=== PATIENT | female | born 1960 | race Hispanic/Latino ===

== ENCOUNTER 2016-06-07 20:19 | Emergency (ER) | payer MEDICAID ==
[2016-06-07 20:20] VITALS: BMI 27.8
[2016-06-07 20:31] VITALS: RESP 16; TEMP 98.2
[2016-06-07 22:00] VITALS: BP 136/69; PULSE 63; O2SAT 97
[2016-06-07 22:10] LABS: BASO # 0.1 K/uL (0.0-0.2); BASO % 0.9 % (0.0-2.0); EOS # 0.2 K/uL (0.0-0.7); EOS % 2.3 % (0.0-4.0); HEMATOCRIT 34.3 % (34.0-47.0); LYMPH # 3.5 K/uL (1.0-4.3); LYMPH % 35.4 % (20.0-40.0); MEAN CELL VOLUME 88.2 fl (81.0-99.0); MEAN CORPUSCULAR HEMOGLOBIN 29.3 pg (27.0-31.0); MEAN CORPUSCULAR HGB CONC 33.2 g/dL (33.0-37.0); MEAN PLATELET VOLUME 9.4 fl (7.2-11.7); MONO # 0.8 K/uL (0.0-0.8); MONO % 8.2 % (0.0-10.0); NEUT # 5.3 K/uL (1.8-7.0); NEUT % 53.2 % (50.0-75.0); RED CELL DISTRIBUTION WIDTH 13.6 % (11.5-14.5); WHITE BLOOD COUNT 9.9 K/uL (4.8-10.8)
[2016-06-07 22:13] LABS: ALB/GLOB RATIO 1.1 (1.0-2.1); ALKALINE PHOSPHATASE 87 U/L (38-126); ALT/SGPT 27 U/L (9-52); AST/SGOT 19 U/L (14-36); BILIRUBIN,TOTAL 0.5 mg/dl (0.2-1.3); BLOOD UREA NITROGEN 16 mg/dl (7-17); CALCIUM 9.9 mg/dL (8.4-10.2); CARBON DIOXIDE 28 mmol/L (22-30); CHLORIDE 100 mmol/L (98-107); GFR AFRICAN-AMERICAN > 60; GLUCOSE,RANDOM 148 mg/dL (65-105); POTASSIUM 3.8 MMOL/L (3.6-5.0); RBC URINE 2 /hpf (0-3); SODIUM 134 mmol/l (132-148); URINE BACTERIA RARE (<OCC); URINE BILIRUBIN NEGATIVE (NEGATIVE); URINE BLOOD NEGATIVE (NEGATIVE); URINE COLOR STRAW (YELLOW); URINE GLUCOSE (UA) NEG (Normal); URINE KETONE NEGATIVE (NEGATIVE); URINE LEUKOCYTE ESTERASE NEG Leu/uL (Negative); URINE PROTEIN 100 mg/dL (NEGATIVE); URINE UROBILINOGEN 0.2-1.0 mg/dL (0.2-1.0); WBC URINE 1 /hpf (0-5)
--- NOTE | 2016-06-07 22:35 | ED PDOC ---
HPI: Hypertension/Hypotension Time Seen by Provider: 06/07/16 20:44 Chief Complaint (Nursing): High Blood Pressure Chief Complaint (Provider): High blood pressure History Per: Patient History/Exam Limitations: no limitations Onset/Duration Of Symptoms: Days Current Symptoms Are (Timing): Still Present Associated Symptoms: denies: Dizziness, Blurred Vision, Focal Weakness Additional History Per: Patient Additional Complaint(s): The pt is a 56yo female, sent to the ED for evaluation by her PMD due to elevated blood pressure. Pt reports her pressure has been elevated for the past month and states upon visiting her PMD, she was given 2 tabs of blood pressure medications - she is unsure of the name. Pt also reports she was given 3 new prescriptions for her blood pressure. Otherwise, pt denies any chest pain, SOB, headache, now new paresthesia's or focal weaknesses. She denies any other medical complaints. Past Medical History Reviewed: Historical Data, Nursing Documentation, Vital Signs Vital Signs: Last Vital Signs Temp 98.2 F 06/07/16 20:26 Pulse 63 06/07/16 21:59 Resp 16 06/07/16 21:59 BP 136/69 06/07/16 21:59 Pulse Ox 97 06/07/16 21:59 - Medical History PMH: Arthritis, CVA, HTN, Hypercholesterolemia Denies: HIV, Chronic Kidney Disease - Surgical History Surgical History: No Surg Hx - Family History Family History: States: Unknown Family Hx - Home Medications Home Medications: Ambulatory Orders Medication Instructions Recorded Pantoprazole [Protonix EC Tab] 40 mg PO DAILY 12/24/15 Aspirin [Aspirin EC] 325 mg PO DAILY #0 tablet.dr 01/04/16 Atorvastatin [Lipitor] 80 mg PO HS #0 tab 01/04/16 GlipiZIDE [Glucotrol] 10 mg PO ACB #0 tab 01/04/16 Insulin Detemir [Levemir] 15 unit SQ HS #0 unit 01/04/16 Nystatin [Nyamyc] 1 applic TP TID #0 powder 01/04/16 Oxybutynin Chloride [Oxybutynin 5 mg PO DAILY #0 tab.er.24 01/04/16 Chloride ER] Valsartan [Diovan] 320 mg PO DAILY #0 tab 01/04/16 hydroCHLOROthiazide [Hydrodiuril] 25 mg PO DAILY #0 tab 01/04/16 metFORMIN [glucOPHAGE] 500 mg PO BID #0 tab 01/04/16 Ferrous Sulfate [Feosol] 325 mg PO DAILY 03/22/16 Gabapentin [Neurontin] 300 mg PO BID 03/22/16 - Allergies Allergies/Adverse Reactions: Allergies Allergy/AdvReac Type Severity Reaction Status Date / Time No Known Allergies Allergy Verified 06/07/16 20:26 Review of Systems ROS Statement: Except As Marked, All Systems Reviewed And Found Negative Cardiovascular: Positive for: Other (increased bp). Negative for: Chest Pain Respiratory: Negative for: Shortness of Breath Neurological: Negative for: Weakness, Headache Physical Exam - Reviewed Nursing Documentation Reviewed: Yes Vital Signs Reviewed: Yes - Physical Exam Appears: Positive for: Well, Non-toxic, No Acute Distress Head Exam: Positive for: ATRAUMATIC, NORMAL INSPECTION, NORMOCEPHALIC Skin: Positive for: Normal Color, Warm, DRY Eye Exam: Positive for: Normal appearance Cardiovascular/Chest: Positive for: Regular Rate, Rhythm Respiratory: Positive for: Normal Breath Sounds. Negative for: Respiratory Distress Neurologic/Psych: Positive for: Alert, Oriented, Facial Droop (old left facial droop), Other (left hand decreased sensation, old, s/p CVA in 2016) - Laboratory Results Result Diagrams: 06/07/16 21:58 06/07/16 21:58 - ECG O2 Sat by Pulse Oximetry: 97 Medical Decision Making Medical Decision Making: Time: 2109 Impression: Elevated blood pressure Plan: -- EKG -- PTT -- Prothrombin -- Urine culture --Reassess Spoke to patient about admission secondary to CHF with fluid on CXR and elevated proBNP. Pt now reports BAILEY and orthopnea. AMA: Scribe Attestation: Documented by Gianna Flynn acting as a scribe for Liat Blevins MD. Provider Attestation: All medical record entries made by the Scribe were at my direction and personally dictated by me. I have reviewed the chart and agree that the record accurately reflects my personal performance of the history, physical exam, medical decision making, and the department course for this patient. I have also personally directed, reviewed, and agree with the discharge instructions and disposition. Disposition - Clinical Impression Clinical Impression: HTN (hypertension), Leg edema - Disposition Referrals: Fabian Collins MD [Family Provider] - Condition: STABLE Additional Instructions: TAKE MEDICATIONS PRESCRIBED. Instructions: Leg Edema (ED), Hypertension (ED)
[2016-06-07 23:00] LABS: PARTIAL THROMBOPLASTIN TIME 28.6 SECONDS (23.3-32.5)
--- NOTE | 2016-06-08 10:39 | RAD ---
HISTORY: HTN, leg swelling COMPARISON: No prior. FINDINGS: LUNGS: No active pulmonary disease. PLEURA: Bilateral pleural effusion larger on the right. CARDIOVASCULAR: Cardiac silhouette prominent in size/ mildly enlarged. OSSEOUS STRUCTURES: No significant abnormalities. VISUALIZED UPPER ABDOMEN: Normal. OTHER FINDINGS: None. IMPRESSION: Suspicious for bilateral pleural effusions larger on the right. Correlate clinically for CHF.
--- NOTE | 2016-06-14 17:22 | CARD ---
APPROVED REPORT EKG Measurement Heart [id number] <Conclusion> Normal sinus rhythm T wave abnormality, consider lateral ischemia Abnormal ECG
== END 2016-06-08 00:11 | disposition left against medical advice (07) ==
LOC: H.ER 20:19
DX: I10 Essential (primary) hypertension (principal); R60.0 Localized edema

== ENCOUNTER 2016-08-13 09:04 | Observation (INO) | payer MEDICAID ==
[2016-08-13 09:16] VITALS: BMI 32.0
[2016-08-13 09:24] VITALS: TEMP 98.6; O2SAT 97
[2016-08-13 10:37] LABS: BASO % 0.3 % (0.0-2.0); EOS # 0.1 K/uL (0.0-0.7); EOS % 1.9 % (0.0-4.0); HEMATOCRIT 36.6 % (34.0-47.0); LYMPH # 2.2 K/uL (1.0-4.3); LYMPH % 30.9 % (20.0-40.0); MEAN CELL VOLUME 85.4 fl (81.0-99.0); MEAN CORPUSCULAR HEMOGLOBIN 28.3 pg (27.0-31.0); MEAN CORPUSCULAR HGB CONC 33.2 g/dL (33.0-37.0); MONO # 0.6 K/uL (0.0-0.8); MONO % 7.9 % (0.0-10.0); NEUT # 4.2 K/uL (1.8-7.0); NRBC % 0.1 % (0.0-0.0); RED CELL DISTRIBUTION WIDTH 13.1 % (11.5-14.5); WHITE BLOOD COUNT 7.1 K/uL (4.8-10.8)
[2016-08-13 11:05] LABS: ALB/GLOB RATIO 1.3 (1.0-2.1); ALKALINE PHOSPHATASE 75 U/L (38-126); ALT/SGPT 23 U/L (9-52); AST/SGOT 16 U/L (14-36); BILIRUBIN,TOTAL 0.5 mg/dl (0.2-1.3); BLOOD UREA NITROGEN 16 mg/dl (7-17); CALCIUM 9.6 mg/dL (8.4-10.2); CARBON DIOXIDE 25 mmol/L (22-30); CHLORIDE 101 mmol/L (98-107); GFR AFRICAN-AMERICAN > 60; GLUCOSE,RANDOM 196 mg/dL (65-105); SODIUM 137 mmol/l (132-148); TOTAL PROTEIN 6.8 G/DL (6.3-8.2)
--- NOTE | 2016-08-13 11:05 | ED PDOC ---
HPI: SOB/CHF/COPD Time Seen by Provider: 08/13/16 09:37 Chief Complaint (Nursing): Shortness Of Breath Chief Complaint (Provider): Shortness Of Breath History Per: Patient History/Exam Limitations: no limitations Onset/Duration Of Symptoms: Days (x5 days) Current Symptoms Are (Timing): Still Present Additional Complaint(s): Pt is 56 y/o female presents to the emergency department with a complaint of experiencing shortness of breath that worsens at night while laying down x5 days. Patient states she has to sleep with 3 pillows in order to breathe comfortably. Denies chest pain. Of note, patient was seen in the ER about 1 1/2 month ago and was advised to stay because she had cast in the lungs. Patient decided to leave and now is experiencing shortness of breath symptoms. Past Medical History Reviewed: Historical Data, Nursing Documentation, Vital Signs Vital Signs: Last Vital Signs Temp 98.6 F 08/13/16 09:23 Pulse 60 08/13/16 19:24 Resp 18 08/13/16 19:24 BP 138/62 08/13/16 19:24 Pulse Ox 97 08/13/16 19:24 - Medical History PMH: Arthritis, CVA, Diabetes, HTN, Hypercholesterolemia Denies: HIV, Chronic Kidney Disease Other PMH: Stroke (5 months ago) - Family History Family History: States: Diabetes - Social History Current smoker - smoking cessation education provided: No Ex-Smoker (has not smoked in the last 12 months): Yes Alcohol: None Drugs: Denies - Home Medications Home Medications: Ambulatory Orders Medication Instructions Recorded Aspirin [Ecotrin] 81 mg PO DAILY 08/13/16 Atorvastatin [Lipitor] 80 mg PO HS 08/13/16 Ferrous Sulfate [Feosol] 325 mg PO DAILY 08/13/16 Gabapentin [Neurontin] 300 mg PO BID 08/13/16 Oxybutynin XL [Ditropan XL] 5 mg PO DAILY 08/13/16 Pantoprazole Sodium [Protonix] 40 mg PO DAILY 08/13/16 Triamterene/Hydrochlorothiazid 1 cap PO DAILY 08/13/16 [Triamterene-Hctz 37.5-25 mg Cp] Valsartan/Hydrochlorothiazide 1 tab PO DAILY 08/13/16 [Diovan Hct 320-25 mg Tablet] Verapamil HCl [Verapamil ER] 240 mg PO DAILY 08/13/16 hydrALAZINE [Apresoline] 10 mg PO BID 08/13/16 metFORMIN [glucOPHAGE] 500 mg PO BID 08/13/16 - Allergies Allergies/Adverse Reactions: Allergies Allergy/AdvReac Type Severity Reaction Status Date / Time No Known Allergies Allergy Verified 08/13/16 09:22 Review of Systems ROS Statement: Except As Marked, All Systems Reviewed And Found Negative Cardiovascular: Negative for: Chest Pain Respiratory: Positive for: Shortness of Breath Musculoskeletal: Negative for: Neck Pain Neurological: Negative for: Weakness Physical Exam - Reviewed Nursing Documentation Reviewed: Yes Vital Signs Reviewed: Yes - Physical Exam Appears: Positive for: Non-toxic, No Acute Distress Head Exam: Positive for: ATRAUMATIC, NORMOCEPHALIC Skin: Positive for: Normal Color, Warm, Dry Eye Exam: Positive for: Normal appearance Neck: Positive for: Normal, Supple Cardiovascular/Chest: Positive for: Regular Rate, Rhythm. Negative for: JVD, Murmur Respiratory: Positive for: Decreased Breath Sounds (at the bases bilateral. Greater at the right base. ) Gastrointestinal/Abdominal: Positive for: Normal Exam, Bowel Sounds, Soft. Negative for: Tenderness Back: Positive for: Normal Inspection Rectal: Positive for: Deferred Extremity: Positive for: Pedal Edema (Bilateral. Greater at the left side. ) Neurologic/Psych: Positive for: Alert. Negative for: Motor/Sensory Deficits - Laboratory Results Result Diagrams: 08/13/16 10:33 08/13/16 10:33 - ECG O2 Sat by Pulse Oximetry: 97 (RA) Pulse Ox Interpretation: Normal Medical Decision Making Medical Decision Making: Time: 9:37 Initial impression: Congestive Heart Failure Initial plan: --Electrocardiogram Stat --B-Type Natriuretic Peptide --COMP Metabolic Panel --Troponin I Stat --EKG-ED (EDNURTX) Stat --Chest One Views (Rad) --Shop Laborer CONT --Urinalysis Stat --Revaluation --Possible admission. Time: 1:30 --Spoke to Dr. Martha Wilcox and he agreed to have patient admitted to his service. Scribe Attestation: Documented by Tiara Slade, acting as a scribe for Adalberto Vasquez MD. Provider Scribe Attestation: All medical record entries made by the Scribe were at my direction and personally dictated by me. I have reviewed the chart and agree that the record accurately reflects my personal performance of the history, physical exam, medical decision making, and the department course for this patient. I have also personally directed, reviewed, and agree with the discharge instructions and disposition. Disposition - Clinical Impression Clinical Impression: CHF (congestive heart failure) - Patient ED Disposition Is Patient to be Admitted: Yes Counseled Patient/Family Regarding: Studies Performed, Diagnosis - Disposition Disposition Time: 13:28 Condition: FAIR
--- NOTE | 2016-08-13 11:21 | RAD ---
PROCEDURE: CHEST RADIOGRAPH, 1 VIEW HISTORY: SOB COMPARISON: Comparison made with prior study 06/07/2016 FINDINGS: LUNGS: Right lower lobe opacity may represent some combination of atelectasis/ infiltrate and effusion. Previously noted minor left basilar atelectasis and small left effusion improved. The central pulmonary vasculature appears slightly increased PLEURA: As above. No pneumothorax seen. CARDIOVASCULAR: Heart size appears borderline/mildly enlarged OSSEOUS STRUCTURES: No significant abnormalities. VISUALIZED UPPER ABDOMEN: Normal. OTHER FINDINGS: None. IMPRESSION: Right lower lobe opacity may represent some combination of atelectasis/ infiltrate and effusion. Previously noted minor left basilar atelectasis and small left effusion improved. The central pulmonary vasculature appears slightly increased
[2016-08-13 11:39] LABS: RBC URINE 1 /hpf (0-3); URINE BILIRUBIN NEGATIVE (NEGATIVE); URINE BLOOD NEGATIVE (NEGATIVE); URINE COLOR YELLOW (YELLOW); URINE GLUCOSE (UA) 50 mg/dL (Normal); URINE KETONE NEGATIVE (NEGATIVE); URINE LEUKOCYTE ESTERASE NEG Leu/uL (Negative); URINE PROTEIN >=500 mg/dL (NEGATIVE); URINE UROBILINOGEN 0.2-1.0 mg/dL (0.2-1.0)
--- NOTE | 2016-08-13 14:46 | US ---
PROCEDURE: Left lower extremity venous Doppler dated 08/13/2016 HISTORY: Left leg swelling; r/o DVT COMPARISON: No prior study available comparison TECHNIQUE: Duplex interrogation of the deep veins left lower extremity performed. FINDINGS: The visualized deep veins of the left lower extremity including the right common femoral artery exhibit normal flow, compressibility augmentation without evidence of DVT. IMPRESSION: No evidence of DVT seen within the visualized deep veins left lower extremity.
[2016-08-13 17:56] VITALS: RESP 18
[2016-08-13 19:27] VITALS: BP 138/62; PULSE 60
--- NOTE | 2016-08-13 22:08 | CARD ---
APPROVED REPORT EKG Measurement Heart [id number] [place] 150P52 [id number] <Conclusion> Normal sinus rhythm Possible Left atrial enlargement ST & T wave abnormality, consider lateral ischemia Abnormal ECG
--- NOTE | 2016-08-17 10:03 | CARD ---
APPROVED REPORT EXAM: Two-dimensional and M-mode echocardiogram with Doppler and color Doppler. Other Information Quality : GoodRhythm : NSR INDICATION Congestive Heart Failure 2D DIMENSIONS IVSd1.12 (0.7-1.1cm)LVDd6.09 (3.9-5.9cm) LVOT Diameter2.00 (1.8-2.4cm)PWd0.80 (0.7-1.1cm) IVSs1.21 (0.8-1.2cm)LVDs4.48 (2.5-4.0cm) FS (%) 26.4 %PWs1.45 (0.8-1.2cm) M-Mode DIMENSIONS Left Atrium (MM)4.41 (2.5-4.0cm)IVSd1.06 (0.7-1.1cm) Aortic Root2.76 (2.2-3.7cm)LVDd6.65 (4.0-5.6cm) Aortic Cusp Exc.1.65 (1.5-2.0cm)PWd0.91 (0.7-1.1cm) IVSs1.41 cmFS (%) 22 % LVDs5.18 (2.0-3.8cm)PWs1.29 cm Mitral Valve MV E Lprbdxpw072.2cm/sMV DECEL OULU043xbMR A Rzjaakhk38.9cm/s MV TUK34kdL/A ratio4.7MVA (PHT)5.23cm2 TDI Lateral E' Peak V6.84cm/sMedial E' Peak V5.05cm/sE/Lateral E'14.9 E/Medial E'20.2 Pulmonary Valve PV Peak Nsmsbaho404.7cm/s Tricuspid Valve TR Peak Nwhqntpk925au/sRAP YVMAAUDR15tkPhYP Peak Gr.58mmHg DKNE76ejOw LEFT VENTRICLE The Left Ventricle is mildly dilated. There is borderline concentric left ventricular hypertrophy. The systolic function is severely impaired. The Ejection Fraction is 15-20%. There is global hypokinesis of the left ventricle. Transmitral Doppler flow pattern is Grade II-pseudonormal filling dynamics. No left ventricle thrombus noted on this study. RIGHT VENTRICLE The right ventricle is borderline dilated. There is normal right ventricular wall thickness. Systolic function is mildly to moderately reduced. ATRIA The left atrium is mildly dilated. The right atrium is mildly dilated. AORTIC VALVE The aortic valve is thickened but opens well. There is mild aortic regurgitation. There is no aortic valvular stenosis. MITRAL VALVE The mitral valve is mildly thickened. There is no mitral valve stenosis. Mitral regurgitation is mild. TRICUSPID VALVE The tricuspid valve is normal in structure There is moderate to severe pulmonary hypertension. PULMONIC VALVE The pulmonary valve is normal in structure There is mild pulmonic valvular regurgitation. GREAT VESSELS The aortic root is normal in size. The IVC collapses <50% with inspiration. PERICARDIAL EFFUSION The pericardium appears normal. <Conclusion> The Left Ventricle is mildly dilated. There is borderline concentric left ventricular hypertrophy. The systolic function is severely impaired. The Ejection Fraction is 15-20%. There is global hypokinesis of the left ventricle. No left ventricle thrombus noted on this study. There is mild aortic regurgitation. Mitral regurgitation is mild. There is moderate to severe pulmonary hypertension.
== END 2016-08-13 19:30 | disposition left against medical advice (07) ==
LOC: H.ER 09:04 → H.TEL 13:28
PROVIDERS: ADMIT Internal Medicine; ATTEND Internal Medicine
DX: I11.0 Hypertensive heart disease with heart failure (principal); I50.9 Heart failure, unspecified; E11.9 Type 2 diabetes mellitus without complications; E78.00 Pure hypercholesterolemia, unspecified; M19.90 Unspecified osteoarthritis, unspecified site; Z86.73 Personal history of transient ischemic attack (TIA), and cerebral infarction without residual deficits; Z87.891 Personal history of nicotine dependence

== ENCOUNTER 2017-04-15 18:16 | Emergency (ER) | payer MEDICAID ==
[2017-04-15 18:17] VITALS: BMI 32.0
--- NOTE | 2017-04-15 18:51 | ED PDOC ---
HPI:STROKE - Time Time: 18:30 - Historian Historian: Patient, Family (son) - Chief Complaint Chief Complaint: Weakness, Difficulty walking - Onset Onset: Months (obgoing and worsening over months) - Context Context: Standing - Location Locate right:: Upper extremity, Lower extremity - Severity of pain Maximum severity:: Moderate Severity Current: Moderate - Quality of Pain Quality of Pain:: Sharp - Exacerbated by Exacerbated by:: Walking - Relieved by Relieved by:: Rest - TPA Positive for Contraindication: Yes Reason tPA is not being Administered: symptoms ongoing for months - Notes: Notes:: 57yo female arrives to ED with son who states she has been deteriorating over last several months, now mostly unable to walk with ?worsening right side weakness. She also notes worsening depression, insomnia, lower extremity edema and RLE pain. She denies suicidal thoughts. Went to a psychiatrist intake yesterday but was unable to be seen. Denies syncope, fever, headache, chest pain , change in speech or vision (chronic blindness L eye). NIHSS Stroke Scale - Date/Time Evaluation Performed Date Performed: 04/15/17 Time Performed: 18:30 When Was NIHSS Performed: Baseline - How Severe is the Stroke Level of Consciousness: 0=Alert LOC to Questions: 0=Both comments correct LOC to commands: 0=Obeys both correctly Best Gaze: 0=Normal Visual: 0=No visual loss Facial: 1=Minor asymmetry Motor Arm - Left: 0=No drift Motor Arm - Right: 0=No drift Motor Leg - Left: 2=Falls before 5 sec Motor Leg - Right: 1=Drift before 5 sec Limb Ataxia: 0=Absent Sensory: 0=Normal Best Language: 0=No aphasia Dysarthia: 0=Normal articulation Extinction & Inattention (Neglect): 0=Normal, no object Score: 4 rTPA Inclusion/Exclusion - Refusal of Treatment Patient Refused Treatment: Yes - Inclusion Criteria for Altepase Patient is 18 years or Older: No The Clinical Diagnosis of Ischemic Stroke That is Causing a Potentially Disabling Neurological Deficit: Yes Time of Onset is Well Established to be Less Than 270 Minute Before Treatment Would Begin: No Risk/Benefit Discussed With Patient/Family Member Present: No - Exclusion Criteria for Altepase Uncontrolled Hypertension at Time of Treatment (Systolic BP above 185 or Diastolic BP above 110 mmHg): No - Warning to TPA With Conditions Following Conditions Weighed Against Anticipated Benefit: Yes Condition: Stroke Serevity Too Mild Past Medical History Reviewed: Historical Data, Nursing Documentation, Vital Signs Vital Signs: Last Vital Signs Temp 97.6 F 04/15/17 18:23 Pulse 66 04/15/17 18:23 Resp 16 04/15/17 18:23 BP 183/63 H 04/15/17 18:23 Pulse Ox 98 04/15/17 18:23 - Medical History PMH: Arthritis, CVA, Diabetes, HTN, Hypercholesterolemia Denies: HIV, Chronic Kidney Disease - Surgical History Other surgeries: L knee, L eye - Family History Family History: States: Unknown Family Hx, Diabetes - Living Arrangements Living Arrangements: With Family - Social History Current smoker - smoking cessation education provided: No (quit) Alcohol: None - Home Medications Home Medications: Ambulatory Orders Medication Instructions Recorded Aspirin [Ecotrin] 81 mg PO DAILY 08/13/16 Atorvastatin [Lipitor] 80 mg PO HS 08/13/16 Ferrous Sulfate [Feosol] 325 mg PO DAILY 08/13/16 Gabapentin [Neurontin] 300 mg PO BID 08/13/16 Oxybutynin XL [Ditropan XL] 5 mg PO DAILY 08/13/16 Pantoprazole Sodium [Protonix] 40 mg PO DAILY 08/13/16 Triamterene/Hydrochlorothiazid 1 cap PO DAILY 08/13/16 [Triamterene-Hctz 37.5-25 mg Cp] Valsartan/Hydrochlorothiazide 1 tab PO DAILY 08/13/16 [Diovan Hct 320-25 mg Tablet] Verapamil HCl [Verapamil ER] 240 mg PO DAILY 08/13/16 hydrALAZINE [Apresoline] 10 mg PO BID 08/13/16 metFORMIN [glucOPHAGE] 500 mg PO BID 08/13/16 - Allergies Allergies/Adverse Reactions: Allergies Allergy/AdvReac Type Severity Reaction Status Date / Time No Known Allergies Allergy Verified 08/13/16 09:22 Review of Systems ROS Statement: Except As Marked, All Systems Reviewed And Found Negative Constitutional: Positive for: Weakness, Malaise. Negative for: Fever, Chills Eyes: Positive for: Other (L eye blind). Negative for: Vision Change Cardiovascular: Negative for: Chest Pain, Palpitations Respiratory: Negative for: Cough, Shortness of Breath Gastrointestinal: Negative for: Nausea, Vomiting, Abdominal Pain Genitourinary Female: Negative for: Dysuria Musculoskeletal: Positive for: Back Pain, Leg Pain. Negative for: Neck Pain, Arm Pain Skin: Negative for: Rash, Lesions, Jaundice Neurological: Positive for: Weakness, Numbness. Negative for: Headache Psych: Positive for: Anxiety, Depression. Negative for: Psychosis, Suicidal ideation Physical Exam - Reviewed Nursing Documentation Reviewed: Yes Vital Signs Reviewed: Yes - Physical Exam Appears: Positive for: Well, Non-toxic, No Acute Distress Head Exam: Positive for: ATRAUMATIC, NORMAL INSPECTION, NORMOCEPHALIC Skin: Positive for: Normal Color, Warm, DRY Eye Exam: Positive for: PERRL, Other (L eye blind). Negative for: Periorbital swelling ENT: Positive for: Normal ENT Inspection Neck: Positive for: Normal, Painless ROM. Negative for: Pain On Movement Of Neck Cardiovascular/Chest: Positive for: Regular Rate, Rhythm Respiratory: Positive for: CNT, Normal Breath Sounds Gastrointestinal/Abdominal: Positive for: Bowel Sounds, Soft. Negative for: Tenderness Back: Positive for: Normal Inspection Extremity: Positive for: Tenderness (LLE), Calf Tenderness (LLE), Swelling (LLE >RLE) Neurologic/Psych: Positive for: Alert, Oriented, Motor/Sensory Deficits (LLE 4/ 5 weakness), Facial Droop (trace old facial droop ). Negative for: Aphasia - ECG O2 Sat by Pulse Oximetry: 98 Medical Decision Making Medical Decision Making: symptoms ongoing and worsening over months. Not a code stroke candidate CT brain, US duplex LLE, CXR, labs, EKG ordered Crisis eval ordered, patient tearful but not suicidal per self or family Disposition - Clinical Impression Clinical Impression: Weakness due to cerebrovascular accident, Depression - Patient ED Disposition Is Patient to be Admitted: Transfer of Care - Disposition Disposition: Transfer of Care Disposition Time: 19:00 Condition: FAIR Instructions: Weakness (ED) Forms: [employer] (Irish) Patient Signed Over To: Robert Malone Handoff Comments: pending all workup and dispo, crisis, EKG/labs/CXR/US/CT
[2017-04-15 19:39] LABS: BASO # 0.1 K/uL (0.0-0.2); BASO % 0.7 % (0.0-2.0); EOS # 0.1 K/uL (0.0-0.7); EOS % 1.6 % (0.0-4.0); HEMOGLOBIN 11.7 g/dL (12.0-16.0); LYMPH # 2.3 K/uL (1.0-4.3); LYMPH % 26.9 % (20.0-40.0); MEAN CELL VOLUME 86.2 fl (81.0-99.0); MEAN CORPUSCULAR HEMOGLOBIN 28.6 pg (27.0-31.0); MEAN CORPUSCULAR HGB CONC 33.2 g/dL (33.0-37.0); MEAN PLATELET VOLUME 9.7 fl (7.2-11.7); MONO # 0.6 K/uL (0.0-0.8); MONO % 7.2 % (0.0-10.0); NEUT # 5.4 K/uL (1.8-7.0); NEUT % 63.6 % (50.0-75.0); NRBC % 0.1 % (0.0-0.0); RBC 4.1 Mil/uL (3.80-5.20); RED CELL DISTRIBUTION WIDTH 13.2 % (11.5-14.5); WHITE BLOOD COUNT 8.5 K/uL (4.8-10.8)
[2017-04-15 19:55] LABS: ALBUMIN 3.4 g/dL (3.5-5.0); ALT/SGPT 29 U/L (9-52); AST/SGOT 13 U/L (14-36); BLOOD UREA NITROGEN 19 mg/dl (7-17); CALCIUM 9.1 mg/dL (8.4-10.2); GFR AFRICAN-AMERICAN > 60; GFR NON-AFRICAN AMERICAN > 60; HDL CHOLESTEROL 66 MG/DL (30-70)
[2017-04-15 20:02] LABS: ALB/GLOB RATIO 1.1 (1.0-2.1)
[2017-04-15 20:05] LABS: LDL CHOLESTEROL 150 mg/dL (0-129)
[2017-04-15 20:11] LABS: INR 0.9 (0.9-1.2); PARTIAL THROMBOPLASTIN TIME 35.2 Seconds (25.6-37.1); PROTHROMBIN TIME 10.2 Seconds (9.8-13.1)
--- NOTE | 2017-04-15 20:38 | ED PDOC ---
- Laboratory Results Result Diagrams: 04/15/17 19:34 04/15/17 19:34 - ECG O2 Sat by Pulse Oximetry: 98 Medical Decision Making Medical Decision Making: Time: 19:00 --transfer of care pending CT and US reports and crisis evaluation Head Ct FINDINGS: Brain: Mild atrophy. No intracranial hemorrhage. No mass. Probable chronic lacunar infarcts within right internal capsule/coronal radiata. Probable chronic lacunar infarcts within basal ganglia. Minimal decreased attenuation within periventricular white matter. No definite edema. Ventricles: No hydrocephalus. Bones/joints: No acute fracture. Soft tissues: Unremarkable. Vasculature: Atherosclerotic disease of intracranial arteries. Sinuses: No acute sinusitis. Mastoid air cells: No mastoid effusion. Orbits: Unremarkable as visualized. IMPRESSION: 1. Nonspecific white matter changes. Acute infarction may be CT occult within first 24 hours. If a focal deficit persists, consider followup CT or MRI for further evaluation. 2. Incidental/non-acute findings are described above. US FINDINGS: Deep veins: No DVT in the visualized common femoral, femoral, proximal deep femoral or popliteal veins. The veins demonstrate normal color flow, are normally compressible, with normal phasic flow and/or augmentation response. The calf veins are not well assessed but no thrombus is seen. Superficial veins: No thrombus in the visualized great saphenous vein. Soft tissues: Distal subcutaneous edema. No popliteal cyst. IMPRESSION: Limited calf vein assessment. No left lower extremity DVT seen. 2230 Pt. cleared by Crisis for discharge, patient states she feels well and wants to go home. Admission offered to patient who declines, states she has an appointment with [facility] on Tuesday for "intake". Advised to sleep with legs elevated and compression stocking. Family requesting prescription for new glucometer. Advised patient to see primary care doctor as soon as possible to adjust hypertensive and diabetes medications. Pt. understands importance for followup, return precautions discussed. Scribe Attestation: Documented by Rachel Pandey, acting as a scribe for Faisal Jones MD Provider Scribe Attestation: All medical record entries made by the Scribe were at my direction and personally dictated by me. I have reviewed the chart and agree that the record accurately reflects my personal performance of the history, physical exam, medical decision making, and the department course for this patient. I have also personally directed, reviewed, and agree with the discharge instructions and disposition. Disposition - Clinical Impression Clinical Impression: Weakness due to cerebrovascular accident, Depression - POA Present On Arrival: None - Disposition Referrals: [facility] [Outside] Disposition: Routine/Home Disposition Time: 22:30 Condition: STABLE Prescriptions: Blood Sugar Diagnostic [Glucose Test Strip] 1 each MC DAILY #50 strip Glucose Meter [Blood Glucose Monitoring System] 1 dev XX PRN #1 dev Instructions: Weakness (ED) Forms: [employer] (Japanese)
--- NOTE | 2017-04-15 20:42 | CT ---
EXAM: CT Head Without Intravenous Contrast CLINICAL HISTORY: 57 years old, female; Signs and symptoms; Weakness, extremity; Left; Patient HX: CVA about a year ago; Additional info: Ongoing left sided weakness TECHNIQUE: Axial computed tomography images of the head/brain without intravenous contrast. All CT scans at this facility use one or more dose reduction techniques, viz.: automated exposure control; ma/kV adjustment per patient size (including targeted exams where dose is matched to indication; i.e. head); or iterative reconstruction technique. Coronal and sagittal reformatted images were created and reviewed. COMPARISON: No relevant prior studies available. FINDINGS: Brain: Mild atrophy. No intracranial hemorrhage. No mass. Probable chronic lacunar infarcts within right internal capsule/coronal radiata. Probable chronic lacunar infarcts within basal ganglia. Minimal decreased attenuation within periventricular white matter. No definite edema. Ventricles: No hydrocephalus. Bones/joints: No acute fracture. Soft tissues: Unremarkable. Vasculature: Atherosclerotic disease of intracranial arteries. Sinuses: No acute sinusitis. Mastoid air cells: No mastoid effusion. Orbits: Unremarkable as visualized. IMPRESSION: 1. Nonspecific white matter changes. Acute infarction may be CT occult within first 24 hours. If a focal deficit persists, consider followup CT or MRI for further evaluation. 2. Incidental/non-acute findings are described above.
[2017-04-15 22:07] VITALS: RESP 18; TEMP 98
[2017-04-15 23:56] VITALS: BP 180/79; PULSE 63; O2SAT 99
--- NOTE | 2017-04-16 09:13 | RAD ---
HISTORY: Weakness COMPARISON: Chest radiograph 08/13/2016. FINDINGS: LUNGS: No active pulmonary disease. PLEURA: No pneumothorax bilaterally or pleural effusion. Prior right pleural effusion has resolved. CARDIOVASCULAR: Normal. OSSEOUS STRUCTURES: No significant abnormalities. VISUALIZED UPPER ABDOMEN: Normal. OTHER FINDINGS: None. IMPRESSION: Resolution of prior right pleural effusion. No acute infiltrate, pleural effusion or pneumothorax identified. Cardiomediastinal silhouette appears stable.
--- NOTE | 2017-04-16 14:26 | US ---
HISTORY: ro DVT, LLE edema . PRIORS: None. FINDINGS: 2-D, color and duplex Doppler analysis of the lower extremity venous circulation using routine protocol from the femoral veins through the popliteal veins. Left posterior tibial vein was also identified. Venous compressibility: Normal. Flow and augmentation patterns: Normal. Visualized veins upper third of calf: Normal. Hoyt cyst: None. IMPRESSION: No sonographic or Doppler evidence for DVT in left lower extremity.
--- NOTE | 2017-04-16 19:32 | CARD ---
APPROVED REPORT EKG Measurement Heart [id number] <Conclusion> Normal sinus rhythm Normal ECG
== END 2017-04-16 00:09 | disposition home or self-care (01) ==
LOC: H.ER 18:16
DX: I69.398 Other sequelae of cerebral infarction (principal); F32.9 Major depressive disorder, single episode, unspecified; Z86.73 Personal history of transient ischemic attack (TIA), and cerebral infarction without residual deficits; R26.2 Difficulty in walking, not elsewhere classified; G47.00 Insomnia, unspecified

== ENCOUNTER 2018-05-03 11:33 | Emergency (ER) | payer MEDICAID ==
[2018-05-03 11:34] VITALS: BMI 32.0
[2018-05-03 12:02] VITALS: TEMP 97.7
[2018-05-03 12:55] VITALS: BP 151/72; PULSE 64; RESP 16; O2SAT 97
--- NOTE | 2018-05-03 13:14 | ED PDOC ---
Lower Extremity Pain/Injury Time Seen by Provider: 05/03/18 12:59 Chief Complaint (Nursing): Lower Extremity Problem/Injury Chief Complaint (Provider): LLE swelling History Per: Patient, Family History/Exam Limitations: no limitations Additional Complaint(s): Pt reports intermittent LLE swelling X 2 months, resolves on its own. Denies calf pain, trauma, paresthesias, weakness. Noncompliant with diuretics. Denies CP, SOB, palpitations. Past Medical History Reviewed: Nursing Documentation, Vital Signs Vital Signs: Last Vital Signs Temp 97.7 F 05/03/18 12:00 Pulse 64 05/03/18 12:54 Resp 16 05/03/18 12:54 BP 151/72 H 05/03/18 12:54 Pulse Ox 97 05/03/18 12:54 - Medical History PMH: Arthritis, CVA, HTN, Hypercholesterolemia Denies: Diabetes, Hepatitis, HIV, Chronic Kidney Disease, Seizures, Sexually Transmitted Disease - Family History Family History: States: Diabetes - Living Arrangements Living Arrangements: With Family - Social History Current smoker - smoking cessation education provided: No - Home Medications Home Medications: Ambulatory Orders Medication Instructions Recorded Aspirin [Ecotrin] 81 mg PO DAILY 08/13/16 Atorvastatin [Lipitor] 80 mg PO HS 08/13/16 Ferrous Sulfate [Feosol] 325 mg PO DAILY 08/13/16 Gabapentin [Neurontin] 300 mg PO BID 08/13/16 Oxybutynin XL [Ditropan XL] 5 mg PO DAILY 08/13/16 Pantoprazole Sodium [Protonix] 40 mg PO DAILY 08/13/16 Triamterene/Hydrochlorothiazid 1 cap PO DAILY 08/13/16 [Triamterene-Hctz 37.5-25 mg Cp] Valsartan/Hydrochlorothiazide 1 tab PO DAILY 08/13/16 [Diovan Hct 320-25 mg Tablet] Verapamil HCl [Verapamil ER] 240 mg PO DAILY 08/13/16 hydrALAZINE [Apresoline] 10 mg PO BID 08/13/16 metFORMIN [glucOPHAGE] 500 mg PO BID 08/13/16 - Allergies Allergies/Adverse Reactions: Allergies Allergy/AdvReac Type Severity Reaction Status Date / Time No Known Allergies Allergy Verified 08/13/16 09:22 Wells Criteria for PE - Wells Criteria for Pulmonary Embolism Clinical Signs and Symptoms of DVT: Yes P.E is #1 Diagnosis, or Equally Likely: No Heart Rate >100: No Immobilization at least 3 days;Surgery previous 4 weeks: No Previous, objectively diagnosed PE or DVT: No Hemoptysis: No Malignancy w/treatment within 6 months, or palliative: No Total Score: 3 Review of Systems Constitutional: Negative for: Fever, Chills Cardiovascular: Negative for: Chest Pain, Palpitations Respiratory: Negative for: Cough, Shortness of Breath Gastrointestinal: Negative for: Abdominal Pain Genitourinary Female: Negative for: Dysuria, Hematuria Musculoskeletal: Negative for: Leg Pain Skin: Negative for: Rash, Lesions Neurological: Negative for: Headache, Dizziness Physical Exam - Reviewed Nursing Documentation Reviewed: Yes Vital Signs Reviewed: Yes - Physical Exam Appears: Positive for: Well, No Acute Distress Skin: Positive for: Normal Color, Warm, Dry Eye Exam: Positive for: Normal appearance, EOMI, PERRL Cardiovascular/Chest: Positive for: Regular Rate, Rhythm Respiratory: Positive for: Normal Breath Sounds. Negative for: Rales, Rhonchi, Wheezing Gastrointestinal/Abdominal: Positive for: Normal Exam Extremity: Positive for: Normal ROM, Pedal Edema, Capillary Refill (<2 sec), Swelling (LLE with pitting edema). Negative for: Tenderness, Calf Tenderness, Deformity Neurologic/Psych: Positive for: Alert, Oriented. Negative for: Motor/Sensory Deficits - Laboratory Results Result Diagrams: 05/03/18 15:10 05/03/18 15:10 - ECG O2 Sat by Pulse Oximetry: 97 Medical Decision Making Medical Decision Makin yo female with intermittent LLE swelling. - labs - EKG - CXR Time:1453 FINDINGS: 2-D, color and duplex Doppler analysis of the lower extremity venous circulation using routine protocol from the femoral veins through the popliteal veins. Venous compressibility: Normal. Flow and augmentation patterns: Normal. Visualized veins upper third of calf: Normal. Hoyt cyst: None. IMPRESSION: No sonographic or Doppler evidence for DVT in left lower extremity. Disposition - Clinical Impression Clinical Impression: Leg edema - Disposition Disposition: Routine/Home Disposition Time: 16:07 Condition: STABLE Additional Instructions: FOLLOW-UP WITH PMD WITHIN 2 DAYS FOR REEVALUATION. Instructions: Swelling Forms: [employer] (Citizen Of [place])
[2018-05-03] MEDS ORDERED: Insulin Regular 100 units/ml IV STA (13:45)
--- NOTE | 2018-05-03 14:22 | CARD ---
APPROVED REPORT Date of service: 05/03/2018 EKG Measurement Heart [id number] [id number] <Conclusion> Normal sinus rhythm Left ventricular hypertrophy with repolarization abnormality Abnormal ECG
--- NOTE | 2018-05-03 14:57 | US ---
Date of service: 05/03/2018 HISTORY: LLE swelling. PRIORS: None. FINDINGS: 2-D, color and duplex Doppler analysis of the lower extremity venous circulation using routine protocol from the femoral veins through the popliteal veins. Venous compressibility: Normal. Flow and augmentation patterns: Normal. Visualized veins upper third of calf: Normal. Hoyt cyst: None. IMPRESSION: No sonographic or Doppler evidence for DVT in left lower extremity.
[2018-05-03 15:19] LABS: BASO % 0.3 % (0.0-2.0); EOS # 0.2 K/uL (0.0-0.7); EOS % 2.4 % (0.0-4.0); HEMOGLOBIN 10.9 g/dL (12.0-16.0); LYMPH # 2.1 K/uL (1.0-4.3); MEAN CORPUSCULAR HEMOGLOBIN 28.4 pg (27.0-31.0); MEAN CORPUSCULAR HGB CONC 33.4 g/dL (33.0-37.0); MEAN PLATELET VOLUME 10.1 fl (7.2-11.7); MONO # 0.4 K/uL (0.0-0.8); MONO % 5.3 % (0.0-10.0); NEUT # 5.1 K/uL (1.8-7.0); NRBC % 0.1 % (0.0-0.0); RBC 3.82 Mil/uL (3.80-5.20); RED CELL DISTRIBUTION WIDTH 13.9 % (11.5-14.5); WHITE BLOOD COUNT 7.8 K/uL (4.8-10.8)
[2018-05-03 15:28] LABS: ALBUMIN 3.6 g/dL (3.5-5.0); AST/SGOT 15 U/L (14-36); BLOOD UREA NITROGEN 19 mg/dl (7-17); CALCIUM 9.1 mg/dL (8.4-10.2); GFR NON-AFRICAN AMERICAN > 60; INR 0.9; PROTHROMBIN TIME 10.1 Seconds (9.8-13.1)
[2018-05-03 15:30] LABS: PARTIAL THROMBOPLASTIN TIME 35.3 Seconds (25.6-37.1)
[2018-05-03 16:10] LABS: ALT/SGPT 19 U/L (9-52)
== END 2018-05-03 16:45 | disposition home or self-care (01) ==
LOC: H.ER 11:33
DX: R60.0 Localized edema (principal); E78.00 Pure hypercholesterolemia, unspecified; I10 Essential (primary) hypertension; Z79.82 Long term (current) use of aspirin; Z79.84 Long term (current) use of oral hypoglycemic drugs; Z86.73 Personal history of transient ischemic attack (TIA), and cerebral infarction without residual deficits

== ENCOUNTER 2018-07-21 13:13 | Emergency (ER) | payer MEDICAID ==
[2018-07-21 13:13] VITALS: BMI 32.0
[2018-07-21 13:43] VITALS: RESP 18; TEMP 97.7; O2SAT 99
[2018-07-21 14:16] LABS: BASO # 0.1 K/uL (0.0-0.2); BASO % 0.7 % (0.0-2.0); EOS # 0.1 K/uL (0.0-0.7); EOS % 1.2 % (0.0-4.0); HEMOGLOBIN 12.1 g/dL (12.0-16.0); LYMPH % 23.7 % (20.0-40.0); MEAN CELL VOLUME 84.1 fl (81.0-99.0); MEAN CORPUSCULAR HEMOGLOBIN 27.8 pg (27.0-31.0); MEAN PLATELET VOLUME 9.1 fl (7.2-11.7); MONO # 0.7 K/uL (0.0-0.8); NEUT # 5.7 K/uL (1.8-7.0); NEUT % 66.4 % (50.0-75.0); NRBC % 0.1 % (0.0-0.0); RBC 4.37 Mil/uL (3.80-5.20); RED CELL DISTRIBUTION WIDTH 13.9 % (11.5-14.5); WHITE BLOOD COUNT 8.6 K/uL (4.8-10.8)
[2018-07-21] MEDS ORDERED: Verapamil 240 mg ER Tab PO STA (14:16)
[2018-07-21 14:29] LABS: ALB/GLOB RATIO 1.1 (1.0-2.1); ALBUMIN 3.9 g/dL (3.5-5.0); ALT/SGPT 17 U/L (9-52); AST/SGOT 17 U/L (14-36); BLOOD UREA NITROGEN 20 mg/dl (7-17); CALCIUM 9.7 mg/dL (8.4-10.2); GFR NON-AFRICAN AMERICAN 57
--- NOTE | 2018-07-21 14:29 | ED PDOC ---
Lower Extremity Pain/Injury Time Seen by Provider: 07/21/18 14:05 Chief Complaint (Nursing): Lower Extremity Problem/Injury Chief Complaint (Provider): Lower Extremity Problem/Injury History Per: Patient History/Exam Limitations: no limitations Onset/Duration Of Symptoms: Days Current Symptoms Are (Timing): Still Present Additional Complaint(s): 58 y/o female with a PMHx of HTN and CVA presents to the ED for evaluation of increasing swelling in the left leg. Patient reports she has not taken her three blood pressure medications and is unsure of the name of those medications. Patient denies shortness of breath, chest pain and falls. Upon inquiry of her pharmacy, patient was noted to have last filled her Verapamil in March 2018 and Spironolactone in January 2018. PMD: Dr. Vázquez Past Medical History Reviewed: Historical Data, Nursing Documentation, Vital Signs Vital Signs: Last Vital Signs Temp 97.7 F 07/21/18 13:41 Pulse 70 07/21/18 13:41 Resp 18 07/21/18 13:41 BP 220/93 H 07/21/18 13:41 Pulse Ox 99 07/21/18 13:41 - Medical History PMH: Arthritis, CVA, HTN, Hypercholesterolemia Denies: Diabetes, Hepatitis, HIV, Chronic Kidney Disease, Seizures, Sexually Transmitted Disease - Surgical History Surgical History: No Surg Hx - Family History Family History: States: Diabetes - Home Medications Home Medications: Ambulatory Orders Medication Instructions Recorded Aspirin [Ecotrin] 81 mg PO DAILY 08/13/16 Atorvastatin [Lipitor] 80 mg PO HS 08/13/16 Ferrous Sulfate [Feosol] 325 mg PO DAILY 08/13/16 Gabapentin [Neurontin] 300 mg PO BID 08/13/16 Oxybutynin XL [Ditropan XL] 5 mg PO DAILY 08/13/16 Pantoprazole Sodium [Protonix] 40 mg PO DAILY 08/13/16 Triamterene/Hydrochlorothiazid 1 cap PO DAILY 08/13/16 [Triamterene-Hctz 37.5-25 mg Cp] Valsartan/Hydrochlorothiazide 1 tab PO DAILY 08/13/16 [Diovan Hct 320-25 mg Tablet] Verapamil HCl [Verapamil ER] 240 mg PO DAILY 08/13/16 hydrALAZINE [Apresoline] 10 mg PO BID 08/13/16 metFORMIN [glucOPHAGE] 500 mg PO BID 08/13/16 Cephalexin [Keflex] 500 mg PO TID #15 capsule 07/21/18 Verapamil [Calan SR Tab] 240 mg PO DAILY #15 tab 07/21/18 - Allergies Allergies/Adverse Reactions: Allergies Allergy/AdvReac Type Severity Reaction Status Date / Time No Known Allergies Allergy Verified 08/13/16 09:22 Review of Systems ROS Statement: Except As Marked, All Systems Reviewed And Found Negative Musculoskeletal: Positive for: Leg Pain (left leg swelling) Physical Exam - Reviewed Nursing Documentation Reviewed: Yes Vital Signs Reviewed: Yes - Physical Exam Appears: Positive for: No Acute Distress. Negative for: Uncomfortable (comfortable) Extremity: Positive for: Swelling (Left leg swelling > right) - Laboratory Results Result Diagrams: 07/21/18 13:46 07/21/18 13:46 - ECG ECG Rhythm: Positive for: Sinus Rhythm (NSR 61 BPM; NO ECTOPY NO ACUTE CHANGES) O2 Sat by Pulse Oximetry: 99 (RA) Pulse Ox Interpretation: Normal - Progress ED Course And Treament: verapamil 240 mg x 1 dose repeat BP 180/80 URINALYSIS NOTED WITH MANY WBC. RX FOR KEFLEX SENT TO PATIENT'S PHARMACY Medical Decision Making Medical Decision Making: Time: 1354 Impression: Left Leg Swelling Rule Out DVT Plan: -- EKG -- PROBNP -- CMP -- Magnesium -- Troponin I -- CBC with Differentials -- CXR Portable -- Spironolactone 25 mg PO -- Verapamil 240 mg PO -- Inside Outside Sales Representative -- EKG Documentation -- Urinalysis -- US Duplex Lower Extremity Vein Left Time: 1533 CXR RESULTS Date of service: 07/21/2018 HISTORY: leg swelling COMPARISON: Portable chest 04/15/2017. TECHNIQUE: 1 view obtained. FINDINGS: LUNGS: No active pulmonary disease. PLEURA: No significant pleural effusion identified, no pneumothorax apparent. CARDIOVASCULAR: No aortic atherosclerotic calcification present. Normal cardiac size. No pulmonary vascular congestion. OSSEOUS STRUCTURES: No significant abnormalities. VISUALIZED UPPER ABDOMEN: Normal. OTHER FINDINGS: None. IMPRESSION: No interval acute cardiopulmonary disease appreciated. US RESULTS Date of service: 07/21/2018 PROCEDURE: LOWER EXTREMITY VENOUS DOPPLER ULTRASOUND HISTORY: dvt COMPARISON: Left lower extremity venous ultrasound 05/03/2018. TECHNIQUE: Standard and duplex Doppler ultrasound techniques have been utilized in multiple projections to evaluate the left lower extremity major deep veins. FINDINGS: Good compressibility, augmentation, normal phasic venous blood flow and unremarkable static images of the right common and superficial femoral as well as popliteal veins are identified at the left lower extremity with no sonographic evidence to suggest deep venous thrombosis. The left posterior tibial vein appears patent. IMPRESSION: Stable left lower extremity venous ultrasound with no sonographic evidence to suggest deep venous thrombosis as per above. No interval change compared to 05/03/2018 left lower extremity venous ultrasound. Scribe Attestation: Documented by Ulises De La Fuente, acting as a scribe Charles Hernandez PA-C. Provider Scribe Attestation: All medical record entries made by the Scribe were at my direction and personally dictated by me. I have reviewed the chart and agree that the record accurately reflects my personal performance of the history, physical exam, medical decision making, and the department course for this patient. I have also personally directed, reviewed, and agree with the discharge instructions and disposition. Disposition - Clinical Impression Clinical Impression: Hypertension, Venous insufficiency of left lower extremity - Patient ED Disposition Is Patient to be Admitted: No - Disposition Disposition: Routine/Home Disposition Time: 15:54 Condition: FAIR Prescriptions: Cephalexin [Keflex] 500 mg PO TID #15 capsule Verapamil [Calan SR Tab] 240 mg PO DAILY #15 tab Instructions: Varicose Veins and Other Vein Disease in the Legs, High Blood Pressure in Adults
[2018-07-21 14:40] LABS: B-TYPE NATRIURETIC PEPTIDE 974 pg/ml (0-900)
--- NOTE | 2018-07-21 15:27 | RAD ---
Date of service: 07/21/2018 HISTORY: leg swelling COMPARISON: Portable chest 04/15/2017. TECHNIQUE: 1 view obtained. FINDINGS: LUNGS: No active pulmonary disease. PLEURA: No significant pleural effusion identified, no pneumothorax apparent. CARDIOVASCULAR: No aortic atherosclerotic calcification present. Normal cardiac size. No pulmonary vascular congestion. OSSEOUS STRUCTURES: No significant abnormalities. VISUALIZED UPPER ABDOMEN: Normal. OTHER FINDINGS: None. IMPRESSION: No interval acute cardiopulmonary disease appreciated.
--- NOTE | 2018-07-21 15:47 | US ---
Date of service: 07/21/2018 PROCEDURE: LOWER EXTREMITY VENOUS DOPPLER ULTRASOUND HISTORY: dvt COMPARISON: Left lower extremity venous ultrasound 05/03/2018. TECHNIQUE: Standard and duplex Doppler ultrasound techniques have been utilized in multiple projections to evaluate the left lower extremity major deep veins. FINDINGS: Good compressibility, augmentation, normal phasic venous blood flow and unremarkable static images of the right common and superficial femoral as well as popliteal veins are identified at the left lower extremity with no sonographic evidence to suggest deep venous thrombosis. The left posterior tibial vein appears patent. IMPRESSION: Stable left lower extremity venous ultrasound with no sonographic evidence to suggest deep venous thrombosis as per above. No interval change compared to 05/03/2018 left lower extremity venous ultrasound.
[2018-07-21 16:21] LABS: SQUAMOUS EPITHIAL 1 /hpf (0-5); URINE BACTERIA OCC (<OCC); URINE BILIRUBIN NEGATIVE (NEGATIVE); URINE BLOOD NEGATIVE (NEGATIVE); URINE CLARITY CLOUDY (Clear); URINE COLOR YELLOW (YELLOW); URINE GLUCOSE (UA) >=500 mg/dL (NEGATIVE); URINE LEUKOCYTE ESTERASE SMALL Leu/uL (Negative); URINE PROTEIN >=500 mg/dL (NEGATIVE); URINE UROBILINOGEN 0.2-1.0 mg/dL (0.2-1.0)
[2018-07-21 16:58] VITALS: BP 184/68; PULSE 65
--- NOTE | 2018-07-22 17:37 | CARD ---
APPROVED REPORT Date of service: 07/21/2018 EKG Measurement Heart [id number] <Conclusion> Normal sinus rhythm Left ventricular hypertrophy with repolarization abnormality Abnormal ECG
== END 2018-07-21 15:54 | disposition home or self-care (01) ==
LOC: H.ER 13:13
DX: I87.2 Venous insufficiency (chronic) (peripheral) (principal); I10 Essential (primary) hypertension; E78.00 Pure hypercholesterolemia, unspecified; Z79.84 Long term (current) use of oral hypoglycemic drugs; Z86.73 Personal history of transient ischemic attack (TIA), and cerebral infarction without residual deficits; Z79.82 Long term (current) use of aspirin